=== PATIENT | female | born 1965 | race African-American/Black ===

== ENCOUNTER 2016-09-26 07:31 | Emergency (ER) | payer OTHER ==
[~2016-09-26] VITALS: Ht 165.1 cm; Wt 55.0 kg
[~2016-09-26 07:31] MED LIST: FERR325T PO; IBUP800 PO; LORTA5 PO; SYNT125T PO
[2016-09-26 07:33] VITALS: BP 177/96; PULSE 71; RESP 18; TEMP 97.8; O2SAT 100
[2016-09-26] MEDS ORDERED: SODIUM CHLOR 0.9% 1000 ML INJ 1,000 ML IV SCH (07:43)
[2016-09-26] MEDS ORDERED: SODIUM CHLORIDE 0.9% FLUSH 5 ML FLUSH IVF PRN (07:45)
[2016-09-26] MEDS ORDERED: MORPHINE SULFATE 8 MG/ML INJ IV PUSH ONE (07:45)
[2016-09-26 08:18] VITALS: BP 189/84; PULSE 60; RESP 20; O2SAT 100
[2016-09-26 08:29] LABS: AUTOMATED NEUTROPHIL # 5.6 TH/MM3 (1.8-7.7); BASOPHIL % 0.4 % (0.0-2.0); EOSINOPHIL # 0.1 TH/MM3 (0-0.4); EOSINOPHIL % 0.9 % (0.0-4.0); HEMATOCRIT 30.4 % (35.0-46.0); LYMPH % 14.7 % (9.0-44.0); MEAN CELL VOLUME 75.1 FL (80.0-100.0); MEAN CORPUSCULAR HEMOGLOBIN 24.5 PG (27.0-34.0); MEAN CORPUSCULAR HGB CONC 32.6 % (32.0-36.0); MONO % 4.4 % (0.0-8.0); NEUT % 79.6 % (16.0-70.0); PLATELET COUNT 283 TH/MM3 (150-450); RED BLOOD COUNT 4.05 MIL/MM3 (4.00-5.30); RED CELL DISTRIBUTION WIDTH 19.5 % (11.6-17.2)
[2016-09-26 08:30] LABS: HEMO FLAGS AUTO DIFF
[2016-09-26 08:37] LABS: BLOOD, URINE LARGE (NEG); COMMENT (UR) CULTURE INDICATED; CULTURE IF INDICATED CULTURE INDICATED; GLUCOSE,URINE NEG (NEG); KETONE, URINE 150 mg/dL (NEG); MUCUS URINE FEW /lpf (OCC); NITRITE,URINE NEG (NEG); PH, URINE 8.5 (5.0-8.5); SQUAMOUS EPITHELIAL CELL URINE 4 /hpf (0-5); URINE COLOR YELLOW (YELLW/STRAW)
[2016-09-26 08:38] LABS: APTT (PATIENT) 21.5 SEC (24.3-30.1); PROTHROMBIN TIME - PATIENT 11.4 SEC (9.8-11.6)
--- NOTE | 2016-09-26 08:40 | PD ---
HPI Chief Complaint: [employer] Problem/Complaint Time Seen by Provider: 07:43 Travel History International Travel<30 days: No Contact w/Intl Traveler<30days: No Traveled to known affect area: No History of Present Illness HPI Peter a 51-year-old female presents emergency department for pelvic pain. Patient on review of records has a history of fibroids in significant pain in the past. She is walking in the emergency department held over in pain patient states that "morphine works for her". She states that she needs to be out of here by certain time to have a colonoscopy done this morning. She states the pain started yesterday cramping and fairly severe in nature. Located to the suprapubic region. She denies any nausea or vomiting. She is on her cycle now. PFSH Past Medical History Anemia: Yes Diminished Hearing: No Neurologic: Yes (BRAIN TUMOR) Reproductive: Yes (FIBROID TUMOR) Immunizations Current: No Thyroid Disease: Yes ?: Not LMP: 09/26/15 Menopausal: Yes Past Surgical History Neurologic Surgery: Yes (BRAIN SURGERY ) Other Surgery: Yes (MYOMECTOMY 2002, BRAIN SURGERY ) Social History Alcohol Use: Yes (BEER EVERY DAY ) Tobacco Use: Yes (2-3 CIG PER DAY ) Substance Use: Yes (MARIJUANA - LAST USE WAS LAST NIGHT ) Allergies-Medications (Allergen,Severity, Reaction): Coded Allergies: Iodine (Verified Allergy, Unknown, 09/26/16) Reported Meds & Prescriptions Reported Meds & Active Scripts Active Review of Systems Except as stated in HPI: all other systems reviewed are Neg Physical Exam Narrative GENERAL: Well-developed, well-nourished, hold over and writhing in pain. SKIN: Warm and dry. HEAD: Atraumatic. Normocephalic. EYES: Pupils equal and round. No scleral icterus. No injection or drainage. ENT: No nasal bleeding or discharge. Mucous membranes pink and moist. NECK: Trachea midline. No JVD. CARDIOVASCULAR: Regular rate and rhythm. No murmur appreciated. RESPIRATORY: No accessory muscle use. Clear to auscultation. Breath sounds equal bilaterally. GASTROINTESTINAL: Abdomen soft, non-tender, nondistended. Hepatic and splenic margins not palpable. No rebound no percussive tenderness. This completely benign abdominal exam. exam: A she exam with female nurse vending service technician present at all times, there is some vaginal bleeding consistent with menses, no cervical motion tenderness no discharge no vaginal laceration. External genitalia normal. Bimanual tenderness shows uterine masses consistent with previously diagnosed fibroids. Nontender. MUSCULOSKELETAL: No obvious deformities. No clubbing. No cyanosis. No edema. NEUROLOGICAL: Awake and alert. No obvious cranial nerve deficits. Motor grossly within normal limits. Normal speech. PSYCHIATRIC: Appropriate mood and affect; insight and judgment normal. Data Data Last Documented VS Vital Signs Date Time Temp Pulse Resp B/P Pulse Ox O2 Delivery O2 Flow Rate FiO2 09/26/16 11:48 68 18 112/64 97 09/26/16 08:18 Room Air 09/26/16 07:33 97.8 Orders Beta Hcg (Quant/Titer) (09/26/16 07:43) Complete Blood Count With Diff (09/26/16 07:43) Comprehensive Metabolic Panel (09/26/16 07:43) Lipase (09/26/16 07:43) Lactic Acid (09/26/16 07:43) Prothrombin Time / Inr (Pt) (09/26/16 07:43) Act Partial Throm Time (Ptt) (09/26/16 07:43) Urinalysis - C+S If Indicated (09/26/16 07:43) Iv Access Insert/Monitor (09/26/16 07:43) Ecg Monitoring (09/26/16 07:43) Oximetry (09/26/16 07:43) Sodium Chlor 0.9% 1000 Ml Inj (Ns 1000 M (09/26/16 07:43) Sodium Chloride 0.9% Flush (Ns Flush) (09/26/16 07:45) Ed Urine Pregnancytest Poc (09/26/16 07:43) Morphine Inj (Morphine Inj) (09/26/16 07:45) Urine Culture (09/26/16 08:00) Wet Prep Profile (09/26/16 10:57) Gc And Chlamydia Pcr (09/26/16 10:57) Potassium Chloride (Kcl) (09/26/16 11:00) Labs Laboratory Tests Test 09/26/16 09/26/16 09/26/16 08:00 09:20 11:35 White Blood Count 7.0 TH/MM3 Red Blood Count 4.05 MIL/MM3 Hemoglobin 9.9 GM/DL Hematocrit 30.4 % Mean Corpuscular Volume 75.1 FL Mean Corpuscular Hemoglobin 24.5 PG Mean Corpuscular Hemoglobin 32.6 % Concent Red Cell Distribution Width 19.5 % Platelet Count 283 TH/MM3 Mean Platelet Volume 8.8 FL Neutrophils (%) (Auto) 79.6 % Lymphocytes (%) (Auto) 14.7 % Monocytes (%) (Auto) 4.4 % Eosinophils (%) (Auto) 0.9 % Basophils (%) (Auto) 0.4 % Neutrophils # (Auto) 5.6 TH/MM3 Lymphocytes # (Auto) 1.0 TH/MM3 Monocytes # (Auto) 0.3 TH/MM3 Eosinophils # (Auto) 0.1 TH/MM3 Basophils # (Auto) 0.0 TH/MM3 CBC Comment AUTO DIFF Differential Comment AUTO DIFF CONFIRMED Target Cells 1+ Prothrombin Time 11.4 SEC Prothromb Time International 1.0 RATIO Ratio Activated Partial 21.5 SEC Thromboplast Time Urine Color YELLOW Urine Turbidity HAZY Urine pH 8.5 Urine Specific [place] 1.020 Urine Protein 30 mg/dL Urine Glucose (UA) NEG mg/dL Urine Ketones 150 mg/dL Urine Occult Blood LARGE Urine Nitrite NEG Urine Bilirubin NEG Urine Urobilinogen LESS THAN 2.0 MG/DL Urine Leukocyte Esterase SMALL Urine RBC /hpf Urine WBC 17 /hpf Urine Squamous Epithelial 4 /hpf Cells Urine Amorphous Sediment RARE Urine Mucus FEW /lpf Microscopic Urinalysis Comment CULTURE INDICATED Lactic Acid Level 2.2 mmol/L Sodium Level 146 MEQ/L Potassium Level 2.9 MEQ/L Chloride Level 110 MEQ/L Carbon Dioxide Level 23.8 MEQ/L Anion Gap 12 MEQ/L Blood Urea Nitrogen 7 MG/DL Creatinine 0.78 MG/DL Estimat Glomerular Filtration 94 ML/MIN Rate Random Glucose 137 MG/DL Calcium Level 8.6 MG/DL Total Bilirubin 0.5 MG/DL Aspartate Amino Transf 13 U/L (AST/SGOT) Alanine Aminotransferase 17 U/L (ALT/SGPT) Alkaline Phosphatase 56 U/L Total Protein 7.0 GM/DL Albumin 3.6 GM/DL Lipase 75 U/L Human Chorionic Gonadotropin, LESS THAN 1 Quant MIU/ML Clue Cells (Wet Prep) NONE SEEN Vaginal Trichomonas (Wet Prep) NONE SEEN Vaginal Yeast (Wet Prep) NONE SEEN Chlamydia trachomatis DNA NOT DETECTED (PCR) Neisseria gonorrhoeae DNA NOT DETECTED (PCR) MDM Medical Decision Making Medical Screen Exam Complete: Yes Emergency Medical Condition: Yes Differential Diagnosis Menorrhagia, uterine fibroids, pelvic pain, acute abdomen unlikely. Narrative Course Patient roomed emerged department, after morphine IV her pain is completely abated. On revisit she states she feels fine now her abdomen is benign both now and on first examination. Patient labs are reassuring, she is stable for discharge at this time. Discussed need for follow-up with her volunteer patient representative as well as person who is going to be performing her colonoscopy today. test negative. Diagnosis Primary Impression: Pelvic pain Additional Instructions: And follow-up with your volunteer patient representative by phone today, call your grain cleaner today to reschedule your colonoscopy. Disposition: DISCHARGE HOME Condition: Stable Yuriy Cadet MD Sep 26, 2016 08:40
[2016-09-26 09:31] LABS: TARGET CELLS 1+ (NORMAL)
[2016-09-26 09:32] LABS: SCAN/DIFF AUTO DIFF CONFIRMED
[2016-09-26 09:35] VITALS: RESP 16
[2016-09-26 10:36] LABS: ALKALINE PHOSPHATASE 56 U/L (45-117); ALT (GPT) 17 U/L (10-53); ANION GAP 12 MEQ/L (5-15); AST (GOT) 13 U/L (15-37); BETA HCG QUANT LESS THAN 1 MIU/ML (0-5); BICARBONATE 23.8 MEQ/L (21.0-32.0); BLOOD UREA NITROGEN 7 MG/DL (7-18); CHLORIDE 110 MEQ/L (98-107); GLOMERULAR FILTRATION RATE 94 ML/MIN (>89); SODIUM (NA) 146 MEQ/L (136-145); TOTAL BILIRUBIN ADULT 0.5 MG/DL (0.2-1.0)
[2016-09-26 10:39] LABS: POTASSIUM 2.9 MEQ/L (3.5-5.1)
[2016-09-26] MEDS ORDERED: POTASSIUM CHLORIDE 20 MEQ CONTROLLED RELEASE TAB PO ONE (11:00)
[2016-09-26 11:48] VITALS: BP 112/64
[2016-09-26 13:30] LABS: CHLAMYDIA PCR NOT DETECTED (NOT DETECT); NEISSERIA PCR NOT DETECTED (NOT DETECT)
== END 2016-09-26 12:50 | disposition home or self-care (01) ==
LOC: NEPC 07:31
DX: R10.2 Pelvic and perineal pain (principal); R82.90 Unspecified abnormal findings in urine; Z72.0 Tobacco use
CPT/HCPCS: 80053; 81001; 83605; 83690; 84702; 84703; 85025; 85610; 85730; 87086; 87210; 87491; 87591; 96361; 96374; 99283; J2270; J7030